=== PATIENT | male | born 1950 | race Caucasian/White ===

== ENCOUNTER → 2017-02-15 | Outpatient (CLI) | payer BC ==
[~2017-02-15] MED LIST: ASPEC81 PO; CMDUNK PO; MULT-506 PO; PRCUNK PO; RANI75TA7 PO
--- NOTE | 2017-02-15 14:35 | DIAGNOSTIC IMAGING REPORT ---
ULTRASOUND OF THE ABDOMINAL AORTA CLINICAL HISTORY: Aneurysm screening. History of tobacco use. Family history of aortic aneurysm. COMPARISON STUDY: No priors. TECHNIQUE: Multiple williamson scale, color Doppler, and spectral Doppler sonograms of the abdominal aorta and iliac arteries are performed. Images are reviewed in the transverse and longitudinal planes. FINDINGS: There is mild atherosclerotic calcification and irregularity noted throughout the abdominal aorta. The proximal abdominal aorta measures 2.2 x 2.0 cm (AP times transverse), the mid abdominal aorta measures 1.7 x 1.6 cm, and the distal abdominal aorta measures 1.5 x 1.6 cm. The right common iliac artery measures up to 1.0 cm and the left common iliac artery measures up to 1.0 cm. Normal flow and spectral Doppler waveforms are seen within the aorta with velocities measuring up to 93 cm/s. IMPRESSION: There is no sonographic evidence of abdominal aortic aneurysm. Electronically signed by: Tomás Salas M.D. 02/15/2017 2:33 PM Dictated Date/Time: 02/15/2017 2:32 PM
== END | disposition home or self-care (01) ==
LOC: C.ULTR 13:58
PROVIDERS: ATTEND Family Medicine
DX: E66.3 Overweight (principal); E78.5 Hyperlipidemia, unspecified; Z82.49 Family history of ischemic heart disease and other diseases of the circulatory system